=== PATIENT | male | born 1995 ===

== ENCOUNTER 2017-11-21 17:18 | Observation (INO) ==
[2017-11-21] MEDS ORDERED: ACETAMINOPHEN 325 MG TABLET PO PRN (19:47)
[2017-11-21] MEDS ORDERED: ONDANSETRON 4 MG/2 ML VIAL IV PRN (19:47)
[2017-11-21] MEDS: LACTATED RINGERS 1,000 ML IV SCH (21:03)
[2017-11-21] MEDS ORDERED: ENOXAPARIN 40 MG/0.4 ML SYRINGE SUBCUT SCH (22:00)
[2017-11-21] MEDS: cefOXitin 2,000 MG in SYRINGE 1 EACH IV SCH (23:49)
[2017-11-22] MEDS: cefOXitin 2,000 MG in SYRINGE 1 EACH IV SCH (05:15)
[2017-11-22] MEDS: LACTATED RINGERS 1,000 ML IV SCH (05:18)
[2017-11-22 06:33] LABS: Basophils % 0.3 % (0.0-0.8); Eosinophils # 0.1 10*3/uL (0.0-0.87); Eosinophils % 1.1 % (0.00-10.9); Hematocrit 40.2 VOL% (42.0-52.0); Hemoglobin 14.2 GM/DL (14.0-18.0); Immature Granulocytes % 0.3 %; Immature Granulocytes Absolute 0.02 #; Lymphocytes # 1.3 10*3/uL (1.4-4.0); Lymphocytes % 17.9 % (21.2-54.2); Mean Corpuscular HGB Conc 35.3 GM/DL (32-36); Mean Corpuscular Hemoglobin 31 PG (27-34); Mean Corpuscular Volume 86.8 FL (87-102); Mean Platelet Volume 11.4 FL (9.6-12.0); Monocytes # 1.2 10*3/uL (0.11-0.8); Monocytes % 16.4 % (1.7-12.7); Neutrophils # 4.7 10*3/uL (1.4-7.4); Platelet Count 151 T/CUMM (130-400); Red Blood Count 4.63 MC/CUMM (3.8-5.5); Red Cell Distribution Width 13.2 % (9.3-17.3); White Blood Count 7.3 T/CUMM (4-12)
[2017-11-22 06:57] LABS: Band Neutrophils 3 % (0-10); Lymphocytes 17 % (20-55); Platelet Estimate Normal; Segmented Neutrophils 68 % (50-85); Total Cells Counted 100
[2017-11-22 06:58] LABS: Calcium 8.3 MG/DL (8.5-10.1); Hypochromasia 1+; Osmolality,Calculated 280.1 MOS/KG (273-304); Potassium 3.2 MMOL/L (3.5-5.1)
[2017-11-22 06:59] LABS: Ovalocytes Slight
[2017-11-22] MEDS ORDERED: BUPIVACAINE 0.25% /EPI 10 ML VIAL ONE (08:25)
[2017-11-22] MEDS ORDERED: LIDOCAINE 1%/EPI INJ 20 ML VIAL ONE (08:25)
[2017-11-22] MEDS ORDERED: TISSUE ADHESIVE 1 EACH APPLICATOR TOP ONE (08:25)
[2017-11-22] MEDS ORDERED: cefOXitin 2,000 MG in SYRINGE 1 EACH IV ONE (09:00)
[2017-11-22] MEDS ORDERED: PANTOPRAZOLE 40 MG TABLET PO SCH (09:00)
[2017-11-22] MEDS ORDERED: POTASSIUM CHLORIDE RIDER 10 MEQ in PREMIX 1 EACH IV PRN (09:45)
[2017-11-22] MEDS ORDERED: SEVOFLURANE 1 UNIT/15 MINUTE INH ONE (10:53)
[2017-11-22] MEDS ORDERED: ONDANSETRON 4 MG/2 ML VIAL ONE ×2 (10:53→10:59)
[2017-11-22] MEDS ORDERED: MIDAZOLAM 2 MG/2 ML VIAL ONE (10:53)
[2017-11-22] MEDS ORDERED: PROPOFOL 200 MG/20 ML VIAL IV ONE (10:53)
[2017-11-22] MEDS ORDERED: GLYCOPYRROLATE 0.4 MG/2 ML VIAL ONE (10:53)
[2017-11-22] MEDS ORDERED: fentaNYL 100 MCG/2 ML VIAL ONE (10:53)
[2017-11-22] MEDS ORDERED: ACETAMINOPHEN 1,000 MG/100 ML VIAL IV ONE (10:54)
[2017-11-22] MEDS ORDERED: LACTATED RINGERS 1,000 ML IV ONE (10:54)
[2017-11-22] MEDS ORDERED: ROCURONIUM 100 MG/10 ML VIAL IV ONE (10:54)
[2017-11-22] MEDS ORDERED: NEOSTIGMINE 10 MG/10 ML VIAL ONE (10:54)
[2017-11-22] MEDS ORDERED: MEPERIDINE 25 MG/1 ML VIAL ONE (10:59)
[2017-11-22] MEDS ORDERED: PROMETHAZINE INJ 25 MG in SODIUM CHLORIDE 0.9% 50 ML IV PRN (11:03)
[2017-11-22] MEDS ORDERED: ONDANSETRON 4 MG/2 ML VIAL IV PRN (11:03)
[2017-11-22] MEDS ORDERED: diphenhydrAMINE 50 MG/1 ML VIAL IV PRN (11:03)
[2017-11-22] MEDS ORDERED: MORPHINE 10 MG/1 ML VIAL IV PRN (11:03)
[2017-11-22] MEDS ORDERED: MEPERIDINE 25 MG/1 ML VIAL IV PRN (11:03)
[2017-11-22] MEDS ORDERED: POTASSIUM CHLORIDE 20 MEQ TABLET PO ONE (11:32)
[2017-11-22] MEDS: HYDROmorphone 2 MG/1 ML VIAL IV PRN ×2 (13:05→16:55)
[2017-11-22 16:47] VITALS: BP 116/77
== END 2017-11-22 17:30 | disposition home or self-care (01) ==
LOC: EDBD → EDUNIT# → N.EDINP 17:18 → N.ED 17:18 → N.EDINP 19:10 → N.3E 19:18
PROVIDERS: ADMIT Surgery; ATTEND Surgery